=== PATIENT | male | born 1960 | race Caucasian/White ===

== ENCOUNTER 2017-05-27 05:29 | Observation (INO) | payer MEDICAID ==
[2017-05-27] VITALS (16 sets, daily range): BP systolic 106–123; BP diastolic 58–68; PULSE 62–73; TEMP 97.4–98.3
[~2017-05-27] VITALS: Ht 188 cm; Wt 124.4 kg
[2017-05-27 05:57] LABS: BASO % 0.5 % (0.0-2.0); EOS # 0.2 (0.0-0.7); EOS % 3.1 % (0-4.0); GRAN # 4.4 (1.4-6.5); HEMATOCRIT 45.9 % (42.0-52.0); HEMOGLOBIN 14.4 g/dl (13.5-18.0); LYMPH # 0.9 (1.2-3.4); LYMPH % 14.6 % (20.0-51.0); MEAN CELL VOLUME 82 fl (80.0-100.0); MEAN CORPUSCULAR HEMOGLOBIN 26 pg (27.0-31.0); MEAN CORPUSCULAR HGB CONC 31 g/dl (33.0-37.0); MEAN PLATELET VOLUME 11.1 fl (7.4-10.4); MONO # 0.4 (0.1-0.6); MONO % 6.3 % (1.7-9.3); PLATELET COUNT 161 K/mm3 (130-400); REDCELL DISTRIBUTION WIDTH-CV 15.9 % (11.5-14.5)
[2017-05-27 06:03] LABS: PROTHROMBIN TIME 11.6 SECONDS (9.7-12.8)
[2017-05-27 06:05] LABS: ALANINE AMINOTRANSFERASE 31 U/L (21-72); ALBUMIN 3.8 gm/dL (3.5-5.0); ALKALINE PHOSPHATASE 80 U/L (50-136); ANION GAP 8 mmol/L (7-16); AST,SGOT 22 U/L (15-37); BLOOD UREA NITROGEN 10 mg/dL (9-20); CALCIUM 9.1 mg/dL (8.4-10.2); CARBON DIOXIDE 26 mmol/L (22-30); CHLORIDE 104 mmol/L (98-107); CREATININE, serum 0.97 mg/dL (0.66-1.25); GLUCOSE 108 mg/dL (74-106); PARTIAL THROMBOPLASTIN TIME 30.5 SECONDS (26.0-37.0); POTASSIUM 4.2 mmol/L (3.4-5.0); SODIUM 138 mmol/L (137-145); TOTAL PROTEIN 6.7 gm/dL (6.4-8.2)
[2017-05-27 06:19] LABS: TROPONIN-I < 0.012 ng/mL (0.000-0.034)
[2017-05-27] MEDS ORDERED: LOPRESSOR 225 MG/TAB PO (10:26)
[2017-05-27] MEDS ORDERED: ONE DAILY1 TA1 PO (10:27)
[2017-05-27] MEDS ORDERED: ZYRTEC 10MG10 MG PO (10:27)
[2017-05-27] MEDS ORDERED: LEVOXYL0.112 MG PO (10:28)
[2017-05-27] MEDS ORDERED: FLONASE NASAL S16 GM NS (10:28)
[2017-05-28] VITALS (7 sets, daily range): BP systolic 110–118; BP diastolic 67–70; PULSE 62–74; TEMP 97.4–98.7
[2017-05-28] MEDS ORDERED: ASPIRIN E.C. 8181 MG PO (12:03)
[2017-05-28] MEDS ORDERED: PROTONIX 40MG T40 MG PO (12:04)
== END 2017-05-28 15:04 | disposition home or self-care (01) ==
LOC: COL.ER 05:29 → MEDICAL 06:47
PROVIDERS: Emergency Medicine
DX: R07.9 Chest pain, unspecified (principal); I25.10 Atherosclerotic heart disease of native coronary artery without angina pectoris; I10 Essential (primary) hypertension; I08.0 Rheumatic disorders of both mitral and aortic valves; E03.9 Hypothyroidism, unspecified; I25.2 Old myocardial infarction; F17.210 Nicotine dependence, cigarettes, uncomplicated; E66.9 Obesity, unspecified; Z68.35 Body mass index [BMI] 35.0-35.9, adult; Z95.5 Presence of coronary angioplasty implant and graft; Z82.49 Family history of ischemic heart disease and other diseases of the circulatory system
CPT/HCPCS: G0378; J1644; J2250; J3010; J7030; Q9967

== ENCOUNTER 2019-03-20 10:35 | Emergency (ER) | payer BC ==
[~2019-03-20] VITALS: Ht 188 cm; Wt 131.8 kg
[~2019-03-20 10:35] MED LIST: ASPIRIN E.C. 8181 MG PO; FLONASE NASAL S16 GM NS; LEVOXYL0.112 MG PO; LOPRESSOR 225 MG/TAB PO; ONE DAILY1 TA1 PO; PROTONIX 40MG T40 MG PO; ZYRTEC 10MG10 MG PO
[2019-03-20 10:40] VITALS: TEMP 97.3
[2019-03-20 11:01] LABS: BASO % 0.6 % (0.0-2.0); EOS # 0.3 (0.0-0.7); EOS % 6.3 % (0-4.0); GRAN # 3.4 (1.4-6.5); GRAN % 66.6 % (42.2-75.2); HEMATOCRIT 45.9 % (42.0-52.0); HEMOGLOBIN 14.5 g/dl (13.5-18.0); LYMPH % 20.4 % (20.0-51.0); MEAN CELL VOLUME 83 fl (80.0-100.0); MEAN CORPUSCULAR HEMOGLOBIN 26 pg (27.0-31.0); MEAN CORPUSCULAR HGB CONC 32 g/dl (33.0-37.0); MEAN PLATELET VOLUME 11.2 fl (7.4-10.4); MONO # 0.3 (0.1-0.6); MONO % 5.7 % (1.7-9.3); PLATELET COUNT 155 K/mm3 (130-400); RED BLOOD COUNT 5.54 M/mm3 (4.20-5.60); REDCELL DISTRIBUTION WIDTH-CV 15.4 % (11.5-14.5)
[2019-03-20 11:05] LABS: ALANINE AMINOTRANSFERASE 23 U/L (21-72); ALBUMIN 3.9 gm/dL (3.5-5.0); ALKALINE PHOSPHATASE 89 U/L (50-136); ANION GAP 8 mmol/L (7-16); AST,SGOT 24 U/L (15-37); BLOOD UREA NITROGEN 15 mg/dL (9-20); CALCIUM 8.9 mg/dL (8.4-10.2); CARBON DIOXIDE 24 mmol/L (22-30); CHLORIDE 106 mmol/L (98-107); CREATININE, serum 0.87 (0.66-1.25); GLUCOSE 116 mg/dL (74-106); LIPASE 87 U/L (23-300); POTASSIUM 4.2 mmol/L (3.4-5.0); SODIUM 138 mmol/L (137-145); TOTAL PROTEIN 6.8 gm/dL (6.4-8.2)
[2019-03-20 11:19] LABS: TROPONIN-I < 0.012 ng/mL (0.000-0.035)
[2019-03-20] MEDS ORDERED: PROTONIX 40MG T40 MG PO (14:14)
[2019-03-20 15:24] VITALS: BP 113/80; PULSE 67
== END 2019-03-20 15:29 | disposition home or self-care (01) ==
LOC: COL.ER 10:39
PROVIDERS: Emergency Medicine
DX: K20.9 Esophagitis, unspecified (principal); R07.89 Other chest pain; Z95.5 Presence of coronary angioplasty implant and graft; Z79.82 Long term (current) use of aspirin; Z79.51 Long term (current) use of inhaled steroids
CPT/HCPCS: C9113; J1885; J3010; J7030; Q9967

== ENCOUNTER 2019-09-24 20:19 | Emergency (ER) | payer BC ==
[~2019-09-24] VITALS: Ht 188 cm; Wt 129.5 kg
[~2019-09-24 20:19] MED LIST changes: +ANTACID ULTRA1000 M1 PO; +CENTRUM MEN'S; -ONE DAILY1 TA1 PO; +PRILOSEC10 MG PO
[2019-09-24 20:20] VITALS: TEMP 98
[2019-09-24 20:46] LABS: BASO % 0.6 % (0.0-2.0); EOS # 0.3 (0.0-0.7); EOS % 5.1 % (0-4.0); GRAN # 3.3 (1.4-6.5); GRAN % 63.2 % (42.2-75.2); HEMATOCRIT 45.6 % (42.0-52.0); HEMOGLOBIN 14.4 g/dl (13.5-18.0); LYMPH # 1.2 (1.2-3.4); LYMPH % 23.5 % (20.0-51.0); MEAN CELL VOLUME 84 fl (80.0-100.0); MEAN CORPUSCULAR HEMOGLOBIN 27 pg (27.0-31.0); MEAN CORPUSCULAR HGB CONC 32 g/dl (33.0-37.0); MEAN PLATELET VOLUME 10.9 fl (7.4-10.4); MONO # 0.4 (0.1-0.6); MONO % 7.2 % (1.7-9.3); PLATELET COUNT 160 K/mm3 (130-400); RED BLOOD COUNT 5.43 M/mm3 (4.20-5.60); REDCELL DISTRIBUTION WIDTH-CV 15.3 % (11.5-14.5)
[2019-09-24 20:47] LABS: ALANINE AMINOTRANSFERASE 19 U/L (4-49); ALBUMIN 3.9 gm/dL (3.5-5.0); ANION GAP 6 mmol/L (7-16); BILIRUBIN,TOTAL 1.3 mg/dL (0.0-1.0); BLOOD UREA NITROGEN 14 mg/dL (9-20); C-REACTIVE PROTEIN 0.9 mg/dL (0.0-0.9); CALCIUM 9.2 mg/dL (8.4-10.2); CARBON DIOXIDE 23 mmol/L (22-30); CHLORIDE 107 mmol/L (98-107); CREATININE, serum 0.93 (0.66-1.25); GLUCOSE 110 mg/dL (74-106); LIPASE 90 U/L (23-300); SODIUM 137 mmol/L (137-145); TOTAL PROTEIN 7.2 gm/dL (6.4-8.2)
[2019-09-24 20:53] LABS: INR 1.1 (0.8-3.0); PROTHROMBIN TIME 11.9 SECONDS (9.7-12.8)
[2019-09-24 20:55] LABS: PARTIAL THROMBOPLASTIN TIME 34.6 SECONDS (26.0-37.0)
[2019-09-24 21:12] LABS: TROPONIN-I 0.154 ng/mL (0.000-0.035)
[2019-09-24 21:15] LABS: D-DIMER < 200.00 ng/mLDDu (200-230)
[2019-09-24 22:05] LABS: POTASSIUM 4.2 mmol/L (3.4-5.0)
[2019-09-24 22:10] VITALS: BP 129/83; PULSE 65
== END 2019-09-24 22:45 | disposition short-term general hospital (02) ==
LOC: COL.ER 20:19
PROVIDERS: Emergency Medicine
DX: I21.4 Non-ST elevation (NSTEMI) myocardial infarction (principal); I10 Essential (primary) hypertension; F17.210 Nicotine dependence, cigarettes, uncomplicated; Z79.82 Long term (current) use of aspirin; Z86.79 Personal history of other diseases of the circulatory system
CPT/HCPCS: J1644; J2270; J2405; J7030; Q9967

== ENCOUNTER 2022-07-17 13:02 | Observation (INO) | payer OTHER ==
[~2022-07-17] VITALS: Ht 188 cm; Wt 131.8 kg
[2022-07-17 13:37] LABS: BASO % 0.5 % (0.0-2.0); EOS # 0.2 K/mm3 (0.0-0.7); EOS % 3.8 % (0.0-4.0); GRAN # 2.9 K/mm3 (1.4-6.5); GRAN % 68.3 % (42.2-75.2); HEMATOCRIT 40.5 % (42.0-52.0); HEMOGLOBIN 12.7 g/dl (13.5-18.0); LYMPH # 0.9 K/mm3 (1.2-3.4); LYMPH % 20.5 % (20.0-51.0); MEAN CELL VOLUME 84 fl (80.0-100.0); MEAN CORPUSCULAR HEMOGLOBIN 26 pg (27-31); MEAN CORPUSCULAR HGB CONC 31 g/dl (33.0-37.0); MONO # 0.3 K/mm3 (0.1-0.6); MONO % 6.7 % (1.7-9.3); PLATELET COUNT 149 K/mm3 (130-400); RED BLOOD COUNT 4.83 M/mm3 (4.20-5.60); REDCELL DISTRIBUTION WIDTH-CV 15.9 % (11.5-14.5)
[2022-07-17 13:53] LABS: ALBUMIN 3.4 gm/dL (3.4-4.8); BILIRUBIN,TOTAL 1.4 mg/dL (0.2-1.2); CALCIUM 8.8 mg/dL (8.4-10.2); POTASSIUM 4.1 mmol/L (3.5-4.5); TOTAL PROTEIN 5.9 gm/dL (6.2-8.1)
[2022-07-17 13:58] LABS: TROPONIN-I 0.011 ng/mL (0.00-0.033)
[2022-07-17] MEDS ORDERED: LIPITOR 40MG TA40 MG PO (19:41)
[2022-07-17] MEDS ORDERED: COZAAR 50MG50 MG/TAB PO (19:42)
[2022-07-17] MEDS ORDERED: NITROSTAT0.3 MG SL (19:43)
--- NOTE | 2022-07-17 20:00 | NUR ---
PT admitted from ED per cart to room 308, pt came up on 3L O2, normally on RA, checked O2 sat on 1L, 97%, placed on RA, no further SOA reported, pt reports chest pain has resolved. IV INT patent/secure in LH. pt up ad alan in room, med rec, admission intake and assessment done. sandwich box provided after diet order rec'd. NPO @ midnight for am tests.
[2022-07-17 20:06] VITALS: BP 127/82; PULSE 68; TEMP 97.4
[2022-07-17 23:48] VITALS: BP 106/53; PULSE 70; TEMP 97.8
[2022-07-18] VITALS (8 sets, daily range): BP systolic 106–131; BP diastolic 61–73; PULSE 72–89; TEMP 97.5–97.7
--- NOTE | 2022-07-18 06:34 | NUR ---
pt on RA since admission, no further CP reported. NPO since midnight, up ad alan in room.
[2022-07-18 06:49] LABS: BASO % 0.2 % (0.0-2.0); EOS # 0.3 K/mm3 (0.0-0.7); EOS % 5.6 % (0.0-4.0); GRAN % 68.7 % (42.2-75.2); HEMATOCRIT 41.1 % (42.0-52.0); HEMOGLOBIN 12.6 g/dl (13.5-18.0); LYMPH # 0.7 K/mm3 (1.2-3.4); LYMPH % 16.5 % (20.0-51.0); MEAN CELL VOLUME 84 fl (80.0-100.0); MEAN CORPUSCULAR HEMOGLOBIN 26 pg (27-31); MEAN CORPUSCULAR HGB CONC 31 g/dl (33.0-37.0); MEAN PLATELET VOLUME 11.7 fl (7.4-10.4); MONO # 0.4 K/mm3 (0.1-0.6); MONO % 8.8 % (1.7-9.3); PLATELET COUNT 140 K/mm3 (130-400); RED BLOOD COUNT 4.88 M/mm3 (4.20-5.60); REDCELL DISTRIBUTION WIDTH-CV 15.9 % (11.5-14.5)
[2022-07-18 06:58] LABS: CALCIUM 8.7 mg/dL (8.4-10.2); CREATININE, serum 0.86 mg/dL (0.72-1.25); POTASSIUM 4.1 mmol/L (3.5-4.5)
--- NOTE | 2022-07-18 08:00 | NUR ---
PATIENT AWAKE AND ALERT, RESTING IN BED. PATIENT DENIES ANY NEEDS, COMPLAINTS, CHEST PAIN OR DISCOMFORT. PATIENT NPO CALL LIGHT WITH IN [facility].
--- NOTE | 2022-07-18 10:32 | NUR ---
Initial visit; Patient thanked Mechanical Operator for looking in on him and offering prayer and God's healing. Patient states he has been well cared for here and is awaiting further news regarding his condition.
--- NOTE | 2022-07-18 12:30 | NUR ---
PATIENT AWAKE AND ALERT, RESTING IN BED. PATINET DENIES ANY CHEST PAIN OR DISCOMFORT AT THIS TIME. CALL LIGHT WITHIN REACH.
--- NOTE | 2022-07-18 13:40 | NUR ---
PATIENT AWAKE AND ALERT,R ESTING IN BED. PATIENT GIVEN DISCHAGRE INSTRUCTIONS AND EDUCAITON. IV AND TELE DISCONTINUED. PATIENT WAITING ON HIS RIDE AND TO CALL NURSE WHEN RIDE ARRIVES.
--- NOTE | 2022-07-18 15:15 | NUR ---
PATIENT WAS PICKED UP BY HIS FAMILY MEMBER, PATIENT LEFT IN STABLE CONDITOIN.
== END 2022-07-18 15:15 | disposition home or self-care (01) ==
LOC: COL.ER 13:02 → MEDICAL 16:20
PROVIDERS: Personal Emergency Response Attendant; ADMIT Student in an Organized Health Care Education/Training Program
DX: R07.9 Chest pain, unspecified (principal); I10 Essential (primary) hypertension; E03.9 Hypothyroidism, unspecified; F17.210 Nicotine dependence, cigarettes, uncomplicated; Z79.890 Hormone replacement therapy
CPT/HCPCS: A9500; G0378; J2270; J2405; J2785; Q9967

== ENCOUNTER 2023-06-06 08:20 | Emergency (ER) | payer OTHER ==
[~2023-06-06] VITALS: Ht 185.4 cm; Wt 134.5 kg
[~2023-06-06 08:20] MED LIST changes: +CARAFATE 1GM1 G PO; +COZAAR 50MG50 MG/TAB PO; +LIPITOR 40MG TA40 MG PO; +NITROSTAT0.3 MG SL; +NORCO 325 MG-51 TAB PO; +PYRIDIUM 100MG100 MG PO
[2023-06-06 08:21] VITALS: TEMP 97.9
[2023-06-06 08:38] LABS: BASO % 0.5 % (0.0-2.0); EOS # 0.2 K/mm3 (0.0-0.7); EOS % 5.5 % (0.0-4.0); GRAN # 2.9 K/mm3 (1.4-6.5); GRAN % 64.9 % (42.2-75.2); HEMATOCRIT 42.3 % (42.0-52.0); HEMOGLOBIN 13.2 g/dl (13.5-18.0); LYMPH # 0.9 K/mm3 (1.2-3.4); LYMPH % 21.4 % (20.0-51.0); MEAN CELL VOLUME 80 fl (80.0-100.0); MEAN CORPUSCULAR HEMOGLOBIN 25 pg (27-31); MEAN CORPUSCULAR HGB CONC 31 g/dl (33.0-37.0); MEAN PLATELET VOLUME 10.1 fl (7.4-10.4); MONO # 0.3 K/mm3 (0.1-0.6); MONO % 7.5 % (1.7-9.3); PLATELET COUNT 166 K/mm3 (130-400); RED BLOOD COUNT 5.27 M/mm3 (4.20-5.60); REDCELL DISTRIBUTION WIDTH-CV 15.2 % (11.5-14.5)
[2023-06-06 08:44] LABS: INR 1.2 (0.8-3.0); PROTHROMBIN TIME 12.6 SECONDS (9.7-12.8)
[2023-06-06] MEDS ORDERED: Mag/Al Hydrox/Simeth Susp 30 ML CUP PO ONE (08:45)
[2023-06-06 08:46] LABS: PARTIAL THROMBOPLASTIN TIME 33.3 SECONDS (26.0-37.0)
[2023-06-06 08:53] LABS: ALANINE AMINOTRANSFERASE 9 U/L (0-55); ALBUMIN 3.3 gm/dL (3.4-4.8); ALKALINE PHOSPHATASE 106 U/L (40-150); ANION GAP 7 mmol/L (7-16); AST,SGOT 16 U/L (5-34); BILIRUBIN,TOTAL 1.2 mg/dL (0.2-1.2); BLOOD UREA NITROGEN 9 mg/dL (8-26); CARBON DIOXIDE 24 mmol/L (23-31); CHLORIDE 107 mmol/L (98-107); CREATININE, serum 0.92 mg/dL (0.72-1.25); GLUCOSE 111 mg/dL (70-99); MAGNESIUM 1.7 mg/dL (1.6-2.6); POTASSIUM 4.2 mmol/L (3.5-4.5); SODIUM 138 mmol/L (136-145); TOTAL PROTEIN 6.4 gm/dL (6.2-8.1)
[2023-06-06 09:12] LABS: TROPONIN-I < 0.010 ng/mL (0.00-0.033)
[2023-06-06 12:32] VITALS: BP 120/78; PULSE 63
== END 2023-06-06 12:32 | disposition home or self-care (01) ==
LOC: COL.ER 08:20
PROVIDERS: Family Medicine
DX: R07.89 Other chest pain (principal); I45.2 Bifascicular block

== ENCOUNTER 2023-08-07 06:36 | Observation (INO) | payer OTHER ==
[~2023-08-07] VITALS: Ht 188 cm; Wt 96.2 kg
[2023-08-07] VITALS (9 sets, daily range): BP systolic 105–120; BP diastolic 65–76; PULSE 58–75; TEMP 97.4–98.1
[2023-08-07 07:42] LABS: BASO % 0.5 % (0.0-2.0); EOS # 0.2 K/mm3 (0.0-0.7); EOS % 6.3 % (0.0-4.0); GRAN # 2.3 K/mm3 (1.4-6.5); GRAN % 62.4 % (42.2-75.2); HEMATOCRIT 41.1 % (42.0-52.0); HEMOGLOBIN 12.9 g/dl (13.5-18.0); LYMPH # 0.8 K/mm3 (1.2-3.4); LYMPH % 22.3 % (20.0-51.0); MEAN CELL VOLUME 80 fl (80.0-100.0); MEAN CORPUSCULAR HEMOGLOBIN 25 pg (27-31); MEAN CORPUSCULAR HGB CONC 31 g/dl (33.0-37.0); MEAN PLATELET VOLUME 11.2 fl (7.4-10.4); MONO # 0.3 K/mm3 (0.1-0.6); MONO % 8.2 % (1.7-9.3); PLATELET COUNT 144 K/mm3 (130-400); RED BLOOD COUNT 5.16 M/mm3 (4.20-5.60); REDCELL DISTRIBUTION WIDTH-CV 15.9 % (11.5-14.5)
[2023-08-07 07:48] LABS: ALANINE AMINOTRANSFERASE 13 U/L (0-55); ALBUMIN 3.2 g/dL (3.4-4.8); ALKALINE PHOSPHATASE 108 U/L (40-150); ANION GAP 6 mmol/L (7-16); AST,SGOT 15 U/L (5-34); BILIRUBIN,TOTAL 1.2 mg/dL (0.2-1.2); BLOOD UREA NITROGEN 9 mg/dL (8-26); CALCIUM 8.7 mg/dL (8.4-10.2); CHLORIDE 108 mEq/L (98-107); GLUCOSE 109 mg/dL (70-99); POTASSIUM 3.7 mEq/L (3.5-4.5); SODIUM 139 mEq/L (136-145); TOTAL PROTEIN 6.1 g/dl (6.2-8.1)
[2023-08-07 08:00] LABS: TROPONIN-I < 0.010 ng/mL (0.00-0.033)
[2023-08-07] MEDS ORDERED: TOPROL XL 50MG50 MG PO (10:24)
[2023-08-07] MEDS ORDERED: NICORETTE GUM2 MG PO (10:26)
[2023-08-07] MEDS ORDERED: *Potassium Replacement Protocol MC SCH (11:15)
[2023-08-07] MEDS ORDERED: Atorvastatin 40 MG TAB PO ONE (11:15)
--- NOTE | 2023-08-07 11:45 | NUR ---
Patient awake, alert and oriented, up to medical floor from ED. States he no longer has chest pain, states that there's a little "pressure", rating it 1/10. Denies shortness of breath or nausea. Oriented to room, assisted to help order lunch. Bed in lowest position with call light within reach.
[2023-08-07] MEDS ORDERED: Nicotine 7 MG DAILY PATCH TD SCH (11:47)
[2023-08-07 12:04] LABS: MAGNESIUM 1.7 mg/dL (1.6-2.6); PHOSPHOROUS 2.8 mg/dL (2.3-4.7)
[2023-08-07] MEDS ORDERED: NS 1,000 ML IV SCH (14:15)
[2023-08-07] MEDS ORDERED: Atorvastatin 40 MG TAB PO SCH (21:00)
--- NOTE | 2023-08-07 21:32 | NUR ---
Shift assessment complete. States that chest pain is no longer present. Denies any nausea or shortness of breath at this time. Reminded that he will have to be NPO after midnight in preparation for his stress test in the morning. Call light is within reach, bed locked and in low position.
[2023-08-08] VITALS (20 sets, daily range): BP systolic 107–157; BP diastolic 64–86; PULSE 64–93; TEMP 97.6–98
[2023-08-08 06:42] LABS: BASO % 0.7 % (0.0-2.0); EOS # 0.3 K/mm3 (0.0-0.7); EOS % 6.8 % (0.0-4.0); GRAN # 2.7 K/mm3 (1.4-6.5); GRAN % 64.9 % (42.2-75.2); HEMATOCRIT 40.8 % (42.0-52.0); LYMPH # 0.8 K/mm3 (1.2-3.4); LYMPH % 19.8 % (20.0-51.0); MEAN CELL VOLUME 79 fl (80.0-100.0); MEAN CORPUSCULAR HEMOGLOBIN 25 pg (27-31); MEAN CORPUSCULAR HGB CONC 32 g/dl (33.0-37.0); MEAN PLATELET VOLUME 11.2 fl (7.4-10.4); MONO # 0.3 K/mm3 (0.1-0.6); MONO % 7.6 % (1.7-9.3); PLATELET COUNT 141 K/mm3 (130-400); RED BLOOD COUNT 5.18 M/mm3 (4.20-5.60)
[2023-08-08 06:59] LABS: ALBUMIN 3.1 g/dL (3.4-4.8); CALCIUM 8.6 mg/dL (8.4-10.2); CREATININE, serum 0.85 mg/dL (0.72-1.25); MAGNESIUM 1.8 mg/dL (1.6-2.6); PHOSPHOROUS 2.6 mg/dL (2.3-4.7); POTASSIUM 3.9 mEq/L (3.5-4.5)
--- NOTE | 2023-08-08 07:20 | NUR ---
Pt sitting in bed watching tv. Shift assessment completed. 20G IV to L forearm. No signs of redness or swelling. Tele applied. Pt had no complaints at this time. Call light within reach.
--- NOTE | 2023-08-08 08:00 | NUR ---
Pt to Nuclear Med via w/c for [employer].
[2023-08-08] MEDS ORDERED: Regadenoson 0.08 MG/ML 5 ML SYRINGE IV SCH (08:28)
[2023-08-08] MEDS ORDERED: Losartan 50 MG TAB PO SCH (09:00)
[2023-08-08] MEDS ORDERED: Cetirizine 10 MG TAB PO SCH (09:00)
--- NOTE | 2023-08-08 09:00 | NUR ---
Pt returns to room from [facility]. Pt remains NPO until instructed by physician.
--- NOTE | 2023-08-08 09:05 | NUR ---
Pt to Nuclear Med via w/c for [employer].
--- NOTE | 2023-08-08 11:00 | NUR ---
Pt sitting on side of bed upon entering room. Pt denies having any chest pain since arriving to the ED. Denies SOA. Reports having a BM yesterday. Briana completed this am. Awaiting results. Remains NPO except medications administered po with sip of water by student nurse.
--- NOTE | 2023-08-08 12:21 | NUR ---
Contacted Barbara Cheek RN to inquire if patient needs to remain NPO. Per Barbara, patient needs to remain NPO as his Lexiscan was abnormal and will need to have heart cath today or tomorrow. Cardiology to come visit with patient. Upon entering patient room to discuss with patient, patient was resting with eyes closed, respirations even and unlabored.
--- NOTE | 2023-08-08 12:23 | NUR ---
Social work student met with patient to discuss discharge planning. Patient lives in [place] and sees for primary care. Patient stated he obtains his medications from [facility] with no difficulties affording them. Patient reported his best point of contact is his sister Chula (ph#:[phone]). Social work student asked patient if he is interested in making a DPOA-HC here in the hospital. Patient declined and stated he needs more time to figure it out. Patient is independent with ADLS and does not use DME. Patient transports himself to and from appointments with no difficulties and has no concerns with returning home at time of discharge. Discharge plan: Home
[2023-08-08 13:44] LABS: HEMATOCRIT 41.3 % (42.0-52.0); HEMOGLOBIN 12.9 g/dl (13.5-18.0); MEAN CELL VOLUME 80 fl (80.0-100.0); MEAN CORPUSCULAR HEMOGLOBIN 25 pg (27-31); MEAN CORPUSCULAR HGB CONC 31 g/dl (33.0-37.0); MEAN PLATELET VOLUME 10.8 fl (7.4-10.4); PLATELET COUNT 148 K/mm3 (130-400); RED BLOOD COUNT 5.17 M/mm3 (4.20-5.60)
[2023-08-08 13:50] LABS: INR 1.2 (0.8-3.0)
[2023-08-08 13:53] LABS: PARTIAL THROMBOPLASTIN TIME 34.1 SECONDS (26.0-37.0)
[2023-08-08 14:04] LABS: CALCIUM 8.7 mg/dL (8.4-10.2); CREATININE, serum 0.82 mg/dL (0.72-1.25)
--- NOTE | 2023-08-08 15:15 | NUR ---
Pt to laboratory coordinator via bed.
[2023-08-08] MEDS ORDERED: Midazolam 2 MG/2 ML VIAL IV SCH (16:07)
[2023-08-08] MEDS ORDERED: fentaNYL 50 MCG/ML 2 ML VIAL IV SCH (16:11)
[2023-08-08] MEDS ORDERED: Iohexol 350 - 100 ML VIAL INCOR ONE (16:13)
[2023-08-08] MEDS ORDERED: Heparin 1,000 UNITS/ML 10 ML Multi-Dose VIAL IV SCH (16:19)
[2023-08-08] MEDS ORDERED: Heparin 1,000 UNITS/ML 10 ML Multi-Dose VIAL IA SCH (16:20)
[2023-08-08] MEDS ORDERED: Nitroglycerin 100 MCG/ML (Cath Lab) 10 ML VIAL IA SCH (16:21)
[2023-08-08] MEDS ORDERED: 1/2 NS 1,000 ML IV SCH (16:30)
--- NOTE | 2023-08-08 16:35 | NUR ---
Patient returned to room via bed from labor/excavator. A/O x4. Denies pain. Discussed flat time until 1707 and start release of Rt radial band at 1807. Rt radial site without s/s hematoma. Pt verbalizes understanding. See flowsheet for post op VS.
--- NOTE | 2023-08-08 16:40 | NUR ---
Bedside report completed with Cheli DE GUZMAN. Call light in reach, insertion site reviewed, fluid at 100ml/hr via dial flow. Telemetry box in place. Cheli DE GUZMAN denies questions concerns at this time.
--- NOTE | 2023-08-08 17:05 | NUR ---
Dr. Jones made rounds and voiced to this nurse that patient could be discharged after flat time and band released- if okay with hospitalist. Dr. Rowe notified.
--- NOTE | 2023-08-08 18:55 | NUR ---
PATIENT SITTING UP IN BED WATCHING TV WITH NO FAMILY PRESENT WITH NO ACUTE DISTRESS NOTED. PATIENT ON ROOM AIR. TR BAND INTACT TO RIGHT WRIST. 1/2 NS INFUSING INTO LEFT HAND VIA GRAVITY WITH NO COMPLICATIONS NOTED. TELEMETRY INTACT. PATIENT CARE ASSUMED FROM DOM AFTER BEDSIDE REPORT. PATIENT INFORMED BY DOM DE GUZMAN THAT PATIENT HAD DISCHARGE ORDERS. PATIENT REQUESTED TIME LINE FOR DISCHARGE TO BE COMPLETED. PATIENT INFORMED TO GO AHEAD AND NON DESTRUCTIVE TESTER WHO WILL DRIVE HIM HOME. PATIENT VERBALIZED UNDERSTANDING THAT HIS DISCHARGE PAPERWORK WOULD BE COMPLETED SOON POSSIBLE. PATIENT DENIES ANY OTHER NEEDS AT THIS TIME. BED IN LOW POSITION WITH WHEELS LOCKED WITH RAILS UP X3 AND CALL LIGHT WITHIN REACH.
--- NOTE | 2023-08-08 19:32 | NUR ---
See flowsheet for VS. TR band removed and site is free of s/s hematoma and is CDI. Bandaid placed. Discharge orders rec'd for patient to go home this evening.
--- NOTE | 2023-08-08 19:40 | NUR ---
INT to LH d/c'd with cath tip intact. Tele d/c'd.
--- NOTE | 2023-08-08 20:20 | NUR ---
PATIENT GIVEN DISCHARGE INSTRUCTIONS AND SIGNED PAPERWORK. PATIENT VERBALIZED UNDERSTANDING OF DISCHARGE INSTRUCTIONS. PATIENT REQUEST WORK EXCUSE BUT MD DID NOT ORDER ONE. PATIENT STATED HE WOULD CALL HIS PCP IN THE MORNING. PRIMARY NURSE APPOLIGIZED FOR THE INCONVIENCE. PATIENT DEPARTED IN WHEELCHAIR TO ER PARKING LOT IN STABLE CONDITION WITH ALL HIS BELONGINGS. VAISHNAVI WHEELED PATIENT OUT.
== END 2023-08-08 20:22 | disposition home or self-care (01) ==
LOC: COL.ER 06:36 → MEDICAL 10:41
PROVIDERS: Nurse Practitioner Family; Personal Emergency Response Attendant; ADMIT Internal Medicine
DX: I77.810 Thoracic aortic ectasia (principal); I10 Essential (primary) hypertension; K20.90 Esophagitis, unspecified without bleeding; E03.9 Hypothyroidism, unspecified; B35.1 Tinea unguium; D64.9 Anemia, unspecified; E78.5 Hyperlipidemia, unspecified; E66.9 Obesity, unspecified; E87.8 Other disorders of electrolyte and fluid balance, not elsewhere classified; D72.819 Decreased white blood cell count, unspecified; K21.9 Gastro-esophageal reflux disease without esophagitis; I08.3 Combined rheumatic disorders of mitral, aortic and tricuspid valves; Z68.37 Body mass index [BMI] 37.0-37.9, adult; Z87.891 Personal history of nicotine dependence
CPT/HCPCS: A9500-JZ; C1769; G0378; J1644; J1650; J2250; J2785; J3010; J3475; J7030; Q9967

== ENCOUNTER 2023-10-27 13:42 | Inpatient (IN) | payer OTHER ==
[~2023-10-27] VITALS: Ht 188 cm; Wt 130.9 kg
[~2023-10-27 13:42] MED LIST changes: +NICORETTE GUM2 MG PO; +TOPROL XL 50MG50 MG PO
--- NOTE | 2023-10-27 16:30 | NUR ---
PATIENT ADMITED FROM [place] [facility] INTO ROOM 347. A&O. VSS. EMS GAVE PAIN MEDS IN ROUTE, PATIENT DENIES NEED FOR PAIN MEDS AT THIS TIME. PATIENT IS OBESE WITH LARGE, ROUND ABD WITH BOWL SOUNDS PRESENT. NO C/O N/V. IV FLUIDS INFUSING VIA PUMP INTO LEFT HAND IV. HEAD TO TOE ASSESSMENT COMPLETE. PROVIDERS NOTIFIED OF ARRIVAL. ORIENTED TO ROOM. CALL LIGHT IN REACH. NO FAMILY AT BEDSIDE.
[2023-10-27 16:34] VITALS: BP 120/77; PULSE 70; TEMP 97.7
--- NOTE | 2023-10-27 16:50 | NUR ---
AT BEDSIDE. NO PLANS FOR SURGICAL INTERVENTION AT THIS TIME, SEE PROVIDER NOTES.
[2023-10-27 17:00] VITALS: BP_SYST 120
[2023-10-27] MEDS ORDERED: Acetaminophen 500 MG TAB PO PRN (17:30)
[2023-10-27] MEDS ORDERED: Ondansetron 4 MG/2 ML VIAL IV PRN (17:30)
[2023-10-27] MEDS ORDERED: oxyCODONE 5 MG TAB PO PRN (17:30)
[2023-10-27] MEDS ORDERED: Morphine 4 MG/ML VIAL IV PRN (17:30)
[2023-10-27] MEDS ORDERED: NS 1,000 ML IV SCH (18:00)
[2023-10-27 19:41] VITALS: BP 122/76; PULSE 73; TEMP 98.2
[2023-10-27 20:00] VITALS: BP 122/76; PULSE 73; TEMP 98.2
[2023-10-27 21:00] VITALS: BP_SYST 122
[2023-10-27] MEDS ORDERED: Cetirizine 10 MG TAB PO SCH (21:00)
[2023-10-27] MEDS ORDERED: Atorvastatin 40 MG TAB PO SCH (21:00)
[2023-10-28] VITALS (13 sets, daily range): BP systolic 115–143; BP diastolic 70–80; PULSE 57–77; TEMP 97.4–98.2
[2023-10-28 05:34] LABS: BASO % 0.3 % (0.0-2.0); EOS # 0.2 K/mm3 (0.0-0.7); EOS % 5.1 % (0.0-4.0); GRAN # 2.2 K/mm3 (1.4-6.5); GRAN % 65.4 % (42.2-75.2); HEMATOCRIT 38.3 % (42.0-52.0); LYMPH # 0.7 K/mm3 (1.2-3.4); LYMPH % 21.4 % (20.0-51.0); MEAN CELL VOLUME 79 fl (80.0-100.0); MEAN CORPUSCULAR HEMOGLOBIN 25 pg (27-31); MEAN CORPUSCULAR HGB CONC 31 g/dl (33.0-37.0); MEAN PLATELET VOLUME 10.7 fl (7.4-10.4); MONO # 0.3 K/mm3 (0.1-0.6); MONO % 7.5 % (1.7-9.3); PLATELET COUNT 101 K/mm3 (130-400); RED BLOOD COUNT 4.84 M/mm3 (4.20-5.60)
[2023-10-28 06:10] LABS: BILIRUBIN,TOTAL 1.3 mg/dL (0.2-1.2); CALCIUM 7.6 mg/dL (8.4-10.2); CREATININE, serum 0.94 mg/dL (0.72-1.25); MAGNESIUM 1.7 mg/dL (1.6-2.6); POTASSIUM 3.5 mEq/L (3.5-4.5); TOTAL PROTEIN 5.6 g/dl (6.2-8.1)
--- NOTE | 2023-10-28 08:00 | NUR ---
PATIENT IS A&O. VSS. DENIES N/V AND REPORT ABD PAIN IS MUCH BETTER. ABD IS ROUND AND BOWL SOUNDS PRESENT. TOLERATING CLEARS, SEE ORDERS TO ADTT. IV FLUIDS INFUSING VIA PUMP INTO LEFT HAND IV. HEAD TO TOE ASSESSMENT WNL. AM MEDS GIVEN. NO OTHER NEEDS AT THIS TIME. CALL LIGHT IN REACH.
--- NOTE | 2023-10-28 10:26 | NUR ---
Survey Associate met with patient to discuss discharge planning. Patient lives alone in [place] and sees Dr. Marie for primary care. 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 Patient does not use any DME and is independent with ADLS. Patient does not have DPOA-HC but requested the form to take home. SW provided the form and provided education on how to complete it. Patient has four children: Alma Rosa, Darrius, Kaden and Vita. Patient listed his sister, Chula (ph#[phone]) as emergency contact. Patient plans to return home at time of discharge. Discharge Plan: Home
--- NOTE | 2023-10-28 20:00 | NUR ---
PT A&O X4 LAYING IN BED. VSS. SHIFT ASSESSMENT COMPLETE, SEE DOCUMENTATION. PT REPORTS PAIN HAS IMPROVED SINCE PRN TYLENOL GIVEN AT SHIFT CHANGE. DENIES N/V. NS @ 100MLS/HR INFUSING TO LEFT HAND. PT DENYING FURTHER NEEDS AT THIS TIME. CALL LIGHT IN REACH
[2023-10-29 03:09] VITALS: BP 115/70; PULSE 63; TEMP 97.7
[2023-10-29 03:11] VITALS: BP_SYST 115
--- NOTE | 2023-10-29 05:57 | NUR ---
PT HAD NO C/O PAIN OR N/V THROUGHOUT THE NIGHT. CURRENTLY RESTING IN BED W/ UNLABORED RESP & CALL LIGHT IN REACH
[2023-10-29 06:45] LABS: BASO % 0.3 % (0.0-2.0); EOS # 0.2 K/mm3 (0.0-0.7); EOS % 5.4 % (0.0-4.0); GRAN # 1.8 K/mm3 (1.4-6.5); GRAN % 62.5 % (42.2-75.2); HEMOGLOBIN 12.2 g/dl (13.5-18.0); LYMPH # 0.7 K/mm3 (1.2-3.4); MEAN CELL VOLUME 79 fl (80.0-100.0); MEAN CORPUSCULAR HEMOGLOBIN 25 pg (27-31); MEAN CORPUSCULAR HGB CONC 32 g/dl (33.0-37.0); MEAN PLATELET VOLUME 10.8 fl (7.4-10.4); MONO # 0.3 K/mm3 (0.1-0.6); MONO % 9.5 % (1.7-9.3); PLATELET COUNT 110 K/mm3 (130-400); RED BLOOD COUNT 4.84 M/mm3 (4.20-5.60); REDCELL DISTRIBUTION WIDTH-CV 15.9 % (11.5-14.5)
[2023-10-29 07:15] LABS: CALCIUM 7.9 mg/dL (8.4-10.2); CREATININE, serum 0.88 mg/dL (0.72-1.25); POTASSIUM 3.9 mEq/L (3.5-4.5)
[2023-10-29 08:00] VITALS: BP 121/77; PULSE 62; TEMP 97.7
--- NOTE | 2023-10-29 08:00 | NUR ---
Pt. sitting up in bed. Pt. is A&OX3, assessment complete. INT to lt. hand patent. Pt. denies pain or other needs. Call light within reach.
[2023-10-29] MEDS ORDERED: AMOXICILLIN 8751 TAB PO (08:53)
[2023-10-29 09:26] VITALS: BP_SYST 121
--- NOTE | 2023-10-29 11:09 | NUR ---
Pt. has met discharge criteria. Reviewed, and gave pt. discharge packet. Pt. voices understanding. INT discontinued from lt. hand. Pt. getting dressed will call when ride arrives.
--- NOTE | 2023-10-29 11:57 | NUR ---
ornamental metal worker attended interdisciplinary clincial rounding with Dr. Morillo and was notified patient is medically ready for discharge. Patient will discharge home.
== END 2023-10-29 11:20 | disposition home or self-care (01) | DRG 394 ==
LOC: SURG 13:42
PROVIDERS: Physician Assistant; ADMIT Internal Medicine
DX: K63.89 Other specified diseases of intestine (principal); N17.9 Acute kidney failure, unspecified; D69.6 Thrombocytopenia, unspecified; I10 Essential (primary) hypertension; E78.5 Hyperlipidemia, unspecified; E03.9 Hypothyroidism, unspecified; I25.10 Atherosclerotic heart disease of native coronary artery without angina pectoris; I71.9 Aortic aneurysm of unspecified site, without rupture
CPT/HCPCS: J2543; J7030

== ENCOUNTER 2023-12-02 12:29 | Observation (INO) | payer OTHER ==
[~2023-12-02] VITALS: Ht 188 cm; Wt 121.8 kg
[~2023-12-02 12:29] MED LIST changes: +AMOXICILLIN 8751 TAB PO; -LEVOXYL0.112 MG PO; +SYNTHROID0.112 MG/T PO
[2023-12-02] MEDS ORDERED: NS 1,000 ML IV ONE (14:00)
[2023-12-02 14:44] LABS: BASO % 0.4 % (0.0-2.0); EOS # 0.2 K/mm3 (0.0-0.7); EOS % 4.1 % (0.0-4.0); GRAN % 74.4 % (42.2-75.2); HEMATOCRIT 42.3 % (42.0-52.0); HEMOGLOBIN 12.9 g/dl (13.5-18.0); LYMPH # 0.8 K/mm3 (1.2-3.4); LYMPH % 15.5 % (20.0-51.0); MEAN CELL VOLUME 81 fl (80.0-100.0); MEAN CORPUSCULAR HEMOGLOBIN 25 pg (27-31); MEAN CORPUSCULAR HGB CONC 31 g/dl (33.0-37.0); MEAN PLATELET VOLUME 11.5 fl (7.4-10.4); MONO # 0.3 K/mm3 (0.1-0.6); MONO % 5.2 % (1.7-9.3); PLATELET COUNT 156 K/mm3 (130-400); RED BLOOD COUNT 5.23 M/mm3 (4.20-5.60); REDCELL DISTRIBUTION WIDTH-CV 16.1 % (11.5-14.5)
[2023-12-02 14:52] LABS: ALBUMIN 3.6 g/dL (3.4-4.8); BILIRUBIN,TOTAL 1.6 mg/dL (0.2-1.2); CALCIUM 9.2 mg/dL (8.4-10.2); CREATININE, serum 0.91 mg/dL (0.72-1.25); TOTAL PROTEIN 6.4 g/dl (6.2-8.1)
[2023-12-02] MEDS ORDERED: Iohexol 300 - 100 ML VIAL IV ONE (15:33)
[2023-12-02] MEDS ORDERED: NS 100 ML IV SCH (15:33)
[2023-12-02] MEDS ORDERED: NITROSTAT0.4 MG/TAB SL (18:21)
[2023-12-02] MEDS ORDERED: oxyCODONE/Acetaminophen 5-325 MG TAB PO PRN (18:45)
[2023-12-02] MEDS ORDERED: LR 1,000 ML IV SCH ×2 (18:45→19:30)
[2023-12-02] MEDS ORDERED: Ondansetron 4 MG/2 ML VIAL IV PRN ×2 (18:45→19:30)
[2023-12-02] MEDS ORDERED: HYDROmorphone 0.5 MG/0.5 ML SYRINGE IV PRN (18:45)
[2023-12-02] MEDS ORDERED: Morphine 4 MG/ML VIAL IV PRN (19:30)
--- NOTE | 2023-12-02 19:55 | NUR ---
Patient arrived to room 330 via stretcher from ED. Ambulated independently to bed-steady gait. Oriented to room and policy. Admission assessment complete. A&Ox3. Denies nausea/shortness of breath. Rating pain 2/10 on pain scale-intermittently to left lower quadrant-denies need for intervention. Described as pressure. INT to left hand flushes without difficulty. LR@75ml/hr per dr order infusing. Currently on RA. VS stable. Instructed can have clear liquids until 0000 then will be NPO. Verbalizes understanding. Call light in reach. Will monitor.
[2023-12-02 20:24] VITALS: BP 136/78; PULSE 71; TEMP 97.6
[2023-12-02 21:00] VITALS: BP_SYST 136
[2023-12-02 23:27] VITALS: BP 148/75; PULSE 67; TEMP 98
[2023-12-03] VITALS (9 sets, daily range): BP systolic 128–148; BP diastolic 76–80; PULSE 70–79; TEMP 97.5–98.2
--- NOTE | 2023-12-03 00:36 | NUR ---
Resting with eyes closed. No s/s of pain or discomfort noted.
[2023-12-03 04:55] LABS: BASO % 0.6 % (0.0-2.0); EOS # 0.2 K/mm3 (0.0-0.7); EOS % 6.3 % (0.0-4.0); GRAN # 2.1 K/mm3 (1.4-6.5); GRAN % 61.7 % (42.2-75.2); HEMATOCRIT 39.8 % (42.0-52.0); HEMOGLOBIN 12.6 g/dl (13.5-18.0); LYMPH # 0.8 K/mm3 (1.2-3.4); LYMPH % 24.8 % (20.0-51.0); MEAN CELL VOLUME 79 fl (80.0-100.0); MEAN CORPUSCULAR HEMOGLOBIN 25 pg (27-31); MEAN CORPUSCULAR HGB CONC 32 g/dl (33.0-37.0); MEAN PLATELET VOLUME 10.3 fl (7.4-10.4); MONO # 0.2 K/mm3 (0.1-0.6); MONO % 6.3 % (1.7-9.3); PLATELET COUNT 128 K/mm3 (130-400); RED BLOOD COUNT 5.01 M/mm3 (4.20-5.60); REDCELL DISTRIBUTION WIDTH-CV 15.9 % (11.5-14.5)
--- NOTE | 2023-12-03 05:12 | NUR ---
Patient had an uneventful night. Rating pain 1/10 on pain scale described as constant pressure in left lower quadrant. Denies nausea/shortness of breath. Voiding wiythout difficulty. LR@75ml/hr to left hand IV infusing without difficulty. VS remained stable. Denies current questions/concerns. Call light in reach. Will monitor.
[2023-12-03 05:13] LABS: ALBUMIN 3.1 g/dL (3.4-4.8); BILIRUBIN,TOTAL 1.4 mg/dL (0.2-1.2); C-REACTIVE PROTEIN 0.08 mg/dL (0.00-0.50); CALCIUM 8.5 mg/dL (8.4-10.2); CREATININE, serum 0.81 mg/dL (0.72-1.25); POTASSIUM 4.1 mEq/L (3.5-4.5); TOTAL PROTEIN 5.7 g/dl (6.2-8.1)
--- NOTE | 2023-12-03 08:19 | NUR ---
pt a&ox4 sitting up in bed. vss. pt denies pain. bowel sounds are active. pt reports urinating without difficulty. fluids infusing into left hand IV. pt denies needs at this time. call light in reach.
--- NOTE | 2023-12-03 09:25 | NUR ---
Wire Photo Operator met with patient to discuss discharge planning. Patient lives alone in [place] and sees Dr. Marie for primary care. Patient gets medications from [facility] in [place] and does not use any DME. 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 Patient listed his sister, Chula (ph#[phone]) as emergency contact. When asked about DPOA-HC, patient stated he is already working on it. Per previous SW note, a blank copy was provided to him during his last stay. Patient stated he plans to return home at time of discharge. Discharge Plan; Home
--- NOTE | 2023-12-03 14:32 | NUR ---
D: Post Hole Digging Machine Operator stopped by room on rounds. A: Pt was resting and content. Pt has no needs right now. P: Post Hole Digging Machine Operator informed pt that if he needed anything from the pad extractor tender area to let his nurse know. Post Hole Digging Machine Operator will follow up as needed.
--- NOTE | 2023-12-03 17:11 | NUR ---
INT discontinued. discharge instructions given to pt, all questions answered. pt waiting for ride.
--- NOTE | 2023-12-03 18:19 | NUR ---
pt walked out to personal vehicle for discharge.
[2023-12-03] MEDS ORDERED: Atorvastatin 40 MG TAB PO SCH (21:00)
[2023-12-03] MEDS ORDERED: Cetirizine 10 MG TAB PO SCH (21:00)
== END 2023-12-03 18:20 | disposition home or self-care (01) ==
LOC: COL.ER 12:29 → SURG 17:07
PROVIDERS: Personal Emergency Response Attendant; ADMIT Surgery
DX: R10.9 Unspecified abdominal pain (principal); Z87.891 Personal history of nicotine dependence
CPT/HCPCS: A9284; G0378; J7030; J7120; Q9967

== ENCOUNTER 2023-12-23 05:06 | Observation (INO) | payer OTHER ==
[2023-12-23] VITALS (19 sets, daily range): BP systolic 101–123; BP diastolic 57–70; PULSE 70–84; TEMP 97.4–98.1
[~2023-12-23] VITALS: Ht 188.1 cm; Wt 131.4 kg
[~2023-12-23 05:06] MED LIST changes: +NITROSTAT0.4 MG/TAB SL
--- NOTE | 2023-12-23 05:15 | NUR ---
Report received from [facility] RN.
--- NOTE | 2023-12-23 05:30 | NUR ---
Report received from EMS. Patient is currently 20 minutes out. Updated GAB Sifuentesoperation supervisor.
--- NOTE | 2023-12-23 06:00 | NUR ---
Patient arrived to room 347 via stretcher from [facility]. Oriented to room and policy.
[2023-12-23] MEDS ORDERED: NORCO 325 MG-51 TAB PO (06:03)
[2023-12-23] MEDS ORDERED: ZOFRAN ODT4 MG PO (06:04)
--- NOTE | 2023-12-23 06:40 | NUR ---
To OR at this time.
[2023-12-23] MEDS ORDERED: Lidocaine PF 2% (20 MG/ML) 5 ML VIAL ONE (06:43)
[2023-12-23] MEDS ORDERED: Ondansetron 4 MG/2 ML VIAL ONE (06:43)
[2023-12-23] MEDS ORDERED: Naloxone 0.4 MG/ML VIAL IV PRN (07:00)
[2023-12-23] MEDS ORDERED: Hyoscyamine 0.125 MG Sublingual TAB SL PRN (07:00)
[2023-12-23] MEDS ORDERED: Morphine 4 MG/ML VIAL IV PRN (07:00)
[2023-12-23] MEDS ORDERED: oxyCODONE 5 MG TAB PO PRN (07:00)
[2023-12-23] MEDS ORDERED: Ondansetron 4 MG/2 ML VIAL IV PRN (07:00)
[2023-12-23] MEDS ORDERED: Acetaminophen 325 MG TAB PO PRN (07:00)
[2023-12-23] MEDS ORDERED: cefTRIAXone 2 G,Lidocaine PF 1% 4.2 ML IV SCH (07:00)
[2023-12-23] MEDS ORDERED: fentaNYL 50 MCG/ML 2 ML VIAL ONE (07:08)
[2023-12-23] MEDS ORDERED: NS 10 ML IV ONE (07:15)
[2023-12-23] MEDS ORDERED: Lidocaine 2% (20 MG/ML) 20 ML UROJET UR ONE (07:24)
[2023-12-23] MEDS ORDERED: Iohexol 350 - 100 ML VIAL URETER-R ONE (07:24)
[2023-12-23] MEDS ORDERED: cefTRIAXone 2 G in Water For Injection,Sterile 20 ML IV SCH (07:30)
[2023-12-23] MEDS ORDERED: Acetaminophen 500 MG TAB PO SCH (07:48)
--- NOTE | 2023-12-23 08:20 | NUR ---
Patient recieved post op. Sleepy. Vss on room air. Report from Millie. Fresh ice water provided. Silverio torres
--- NOTE | 2023-12-23 11:59 | NUR ---
Patient up to the bathroom, able to void. More awake. Minimal reports of pain. Lunch ordered. denies nausea. Vss, Afebrile. Will monitor
--- NOTE | 2023-12-23 12:30 | NUR ---
D: Fixed Assets Accountant stopped by room on rounds. A: Pt was resting and content, with no needs right now. P: Fixed Assets Accountant informed pt that if he needed anything to let his nurse know. Fixed Assets Accountant will follow up as needed.
--- NOTE | 2023-12-23 13:13 | NUR ---
Patient did well with lunch tray. Reprots pain manageable. Will monitor
--- NOTE | 2023-12-23 15:13 | NUR ---
die out worker met with pt to discuss discharge planning. He reports to live alone in [place]. He sees Dr. Marie for PCP needs and obtains medications from [facility] with no difficulties. He is independent with ADLS and uses no DME. He does not have a DPOA-HC, but has a copy at home he is reviewing. Pt reports he does have adult children, but did not appear interested in them being NOK. He has no falls or concerns for mobility. Discharge Plan: home
--- NOTE | 2023-12-23 19:03 | NUR ---
Patient has done well. Sitting up in bed eating dinner tray. VOiding without troubles today. Report to jacques
--- NOTE | 2023-12-23 20:00 | NUR ---
PT IS A&O X4 LAYING IN BED. VSS. SHIFT ASSESSMENT & HS MEDS COMPLETE. PT DENIES ANY PAIN OR N/V. INT TO LEFT HAND PATENT. DENYING FURTHER NEEDS. CALL LIGHT IN REACH
[2023-12-23] MEDS ORDERED: Cetirizine 10 MG TAB PO SCH (21:00)
[2023-12-23] MEDS ORDERED: Atorvastatin 40 MG TAB PO SCH (21:00)
[2023-12-24 03:21] VITALS: BP 123/77; PULSE 65; TEMP 97.5
[2023-12-24 03:27] VITALS: BP_SYST 123
[2023-12-24] MEDS ORDERED: cefTRIAXone 2 G in Water For Injection,Sterile 20 ML IV SCH (04:00)
--- NOTE | 2023-12-24 04:55 | NUR ---
PT AWAKE LAYING IN BED. REPORTS NOT SLEEPING MUCH. DENIES PAIN OR FURTHER NEEDS. CALL LIGHT IN REACH
[2023-12-24] MEDS ORDERED: AMOXICILLIN 8751 TAB PO (06:24)
--- NOTE | 2023-12-24 08:15 | NUR ---
Pt. sitting up in bed. Pt. is A&O3, assessment complete. INT to lt. hand patent. Pt. denies pain or other needs.
[2023-12-24 08:22] VITALS: BP 137/80; PULSE 69; TEMP 97.5
[2023-12-24 09:00] VITALS: BP_SYST 137
--- NOTE | 2023-12-24 10:30 | NUR ---
Pt. ready for discharge. INT discontinued from lt. hand. Reveiewed and gave pt. discharge paperwork. Pt. voices understanding. Pt. dressed and escorted out by WC.
== END 2023-12-24 10:30 | disposition home or self-care (01) ==
LOC: SURG 05:06
PROVIDERS: ADMIT Urology
DX: N20.1 Calculus of ureter (principal); R50.9 Fever, unspecified; D72.829 Elevated white blood cell count, unspecified; Z87.891 Personal history of nicotine dependence; Z79.82 Long term (current) use of aspirin
CPT/HCPCS: C1769; C2617; G0378; G0379; J0690; J0696; J2405; J2704; J3010; Q9967